=== PATIENT | female | born 1950 | race African-American/Black ===

== ENCOUNTER 2018-11-15 20:51 | Inpatient (IN) | payer OTHER, BC ==
[~2018-11-15] VITALS: Ht 144.8 cm; Wt 55.3 kg
[2018-11-15 20:55] VITALS: BP_SYST 153
--- NOTE | 2018-11-15 20:55 | NUR ---
Patient to ER bed 4 for evaluation. Side rails up.
--- NOTE | 2018-11-15 21:00 | NUR ---
Patient to ER via EMS for evaluation of generalized weakness with nausea x 1 day. Patient is awake, alert and oriented in no acute distress, vital signs stable, respirations even and unlabored, skin warm and dry to touch. EKG done in field shows sinus rhythm without ectopy, patient denies CP/SOB. Patient was medicated with Zofran 4 mg IVP x 2, blood glucose in field was 179. Awaiting evaluation by ER MD, will continue to observe and assess.
--- NOTE | 2018-11-15 21:30 | NUR ---
Family at bedside. Patient resting quietly in no acute distress.
--- NOTE | 2018-11-15 21:32 | NUR ---
Dr. Palomo at bedside.
[2018-11-15] MEDS ORDERED: NACL 0.9% 1,000 ML IV ONE (21:58)
[2018-11-15 22:35] LABS: ALBUMIN 3.2 g/dL (3.4-4.8); CALCIUM 8.4 mg/dL (8.4-11.0); CREATININE 0.75 mg/dL (0.55-1.30); POTASSIUM 3.1 mmol/L (3.5-5.1); TOTAL BILIRUBIN 0.4 mg/dL (0.0-1.0)
[2018-11-15 22:43] LABS: HEMATOCRIT 33.3 % (36-48); HEMOGLOBIN 11.5 g/dL (12.0-16.0); MEAN CORPUSCULAR HEMOGLOBIN 35 pg (27-31); MEAN CORPUSCULAR HGB CONC 35 % (32-36); MEAN CORPUSCULAR VOLUME 100 fL (79.0-98.0); PLATELET COUNT (AUTO) 315 K/uL (130-430); RED BLOOD CELL COUNT(AUTO) 3.32 MIL/uL (4.2-6.2); RED CELL DISTRIBUTION WIDTH 13.5 % (9.0-15.0); WHITE BLOOD COUNT (AUTO) 7.6 K/uL (4.8-10.8)
[2018-11-15 22:44] LABS: NEUTROPHILS % (AUTO) 85.5 % (40.0-70.0)
[2018-11-15] MEDS ORDERED: ASPIRIN 81 MG TAB.CHEW PO ONE (22:45)
[2018-11-15 22:46] LABS: MONOCYTES % (AUTO) 7.2 % (1.7-9.3)
[2018-11-15 22:47] LABS: BASOPHILS % (AUTO) 0.3 % (0.0-2.0); LYMPHOCYTES # (AUTO) 0.5 K/uL (1.0-5.5); MONOCYTES # (AUTO) 0.5 K/uL (0.0-1.0); NEUTROPHILS # (AUTO) 6.5 K/uL (1.8-7.7)
[2018-11-15] MEDS ORDERED: POTASSIUM CHLORIDE 20 MEQ TAB.PRT.SR PO ONE (23:00)
[2018-11-15 23:09] LABS: BILIRUBIN,URINE NEGATIVE (NEGATIVE); BLOOD, URINE NEGATIVE (NEGATIVE); CLARITY/URINE CLEAR (CLEAR); COLOR,URINE YELLOW (YELLOW); GLUCOSE,URINE NEGATIVE (NEGATIVE); KETONES,URINE 1+ (NEGATIVE); LEUKOCYTE ESTERASE ,URINE NEGATIVE (NEGATIVE); NITRITE, URINE NEGATIVE (NEGATIVE); PROTEIN URINE NEGATIVE (NEGATIVE); UROBILINOGEN,URINE 0.2 (0.2-1.0)
--- NOTE | 2018-11-15 23:10 | NUR ---
Pt resting in bed. VSS. Family at bedside. Will continue to monitor.
[2018-11-15] MEDS ORDERED: ESTR0.623 PO (23:19)
[2018-11-15] MEDS ORDERED: OMEP20CA10 PO (23:19)
[2018-11-15] MEDS ORDERED: CAT.1 PO (23:19)
[2018-11-16] VITALS (8 sets, daily range): BP systolic 103–126
[2018-11-16] MEDS ORDERED: TEMAZEPAM 15 MG CAPSULE PO PRN (00:15)
[2018-11-16] MEDS ORDERED: *LOVENOX 1MG/KG Q12H/PHARMACY XX ONE (00:15)
[2018-11-16] MEDS ORDERED: ACETAMINOPHEN 325 MG TABLET PO PRN (00:15)
[2018-11-16] MEDS ORDERED: NS 250 ML IV ONE (00:30)
--- NOTE | 2018-11-16 00:40 | NUR ---
Pt states, " I feel like my head is going to explode." VSS. ER MD Palomo notified, orders to given 250ml NS bolus. Will carry out orders.
--- NOTE | 2018-11-16 00:59 | NUR ---
ADMISSION: The patient, CARLEY CONNOR, 68 y/o, F admitted by MELVINA VIRGEN MD, was given written information regarding hospital policies, unit procedures and contact persons. Valuables were checked. .
--- NOTE | 2018-11-16 01:00 | NUR ---
EKG done prior to transfer to floor. Results given to ER MD.
--- NOTE | 2018-11-16 01:05 | NUR ---
Pt states she is feeling better after IVF given. VSS. gave OKAY to transfer to floor.
--- NOTE | 2018-11-16 01:30 | NUR ---
Pt transferred to room 135 with second RN. Report given bedside. Belongings sent with patient. Pt stable at time of transfer.
--- NOTE | 2018-11-16 01:52 | NUR ---
Consultation Paged Reason for Consultation: NSTEMI Was consult called: Y Person who was notified: Anita Consulting Physician: Dr. Cervantes Quality Manager Ordering Physician: Dr. Bernabe
--- NOTE | 2018-11-16 03:08 | NUR ---
RESTING Pt is resting in bed with both eyes closed. With visible chest rise and fall with unlabored breathing noted. No complains of pain at this time. No signs of acute distress or SOB noted. Safety precautions in place with 3 side rails up, bed alarm on, locked, and at lowest level. Call light with pt. Will continue to monitor.
--- NOTE | 2018-11-16 05:00 | NUR ---
RT AT BEDSIDE TAKING EKG.
[2018-11-16 05:49] LABS: HEMATOCRIT 31.8 % (36-48); HEMOGLOBIN 10.5 g/dL (12.0-16.0); MEAN CORPUSCULAR HEMOGLOBIN 33 pg (27-31); MEAN CORPUSCULAR HGB CONC 33 % (32-36); MEAN CORPUSCULAR VOLUME 101 fL (79.0-98.0); PLATELET COUNT (AUTO) 296 K/uL (130-430); RED BLOOD CELL COUNT(AUTO) 3.16 MIL/uL (4.2-6.2); RED CELL DISTRIBUTION WIDTH 13.4 % (9.0-15.0)
[2018-11-16 05:59] LABS: CALCIUM 7.9 mg/dL (8.4-11.0); CREATININE 0.63 mg/dL (0.55-1.30); POTASSIUM 3.7 mmol/L (3.5-5.1)
[2018-11-16 06:08] LABS: BASOPHILS % (AUTO) 0.8 % (0.0-2.0); EOSINOPHILS % (AUTO) 0.1 % (0.0-4.0); LYMPHOCYTES # (AUTO) 1.2 K/uL (1.0-5.5); LYMPHOCYTES % (AUTO) 19.6 % (20.5-51.5); MONOCYTES # (AUTO) 0.6 K/uL (0.0-1.0); MONOCYTES % (AUTO) 10.3 % (1.7-9.3); NEUTROPHILS # (AUTO) 4.2 K/uL (1.8-7.7); NEUTROPHILS % (AUTO) 69.2 % (40.0-70.0)
[2018-11-16 06:09] LABS: WHITE BLOOD COUNT (AUTO) 6.1 K/uL (4.8-10.8)
--- NOTE | 2018-11-16 06:10 | NUR ---
CLOSING NOTES Pt is resting in bed with both eyes closed. With visible chest rise and fall with unlabored breathing noted. No complains of pain or discomfort. No signs of acute distress or SOB noted. All needs attended throughout the shift. Safety precautions maintained and call light with pt. Will endorse to day shift nurse.
[2018-11-16 06:16] LABS: ALBUMIN 2.8 g/dL (3.4-4.8); FREE T4 (FREE THYROXINE) 0.7 ng/dl (0.8-1.5); THYROID STIMULATING HORMONE 8.07 uIu/mL (0.36-3.74); TOTAL BILIRUBIN 0.5 mg/dL (0.0-1.0)
--- NOTE | 2018-11-16 06:30 | NUR ---
ELEVATED TROP Received call from lab Tiny regarding pt's elevated Trop of 1.642 at 0625. Pt has no complains of chest pain. Vital signs are within normal range and recorded (see v/s). Dr. Bernabe already ordered cardio consult to Dr. Cervantes and was paged by area secretary, EKG was taken, and repeat trop at 1300 today. Charge nurse Gisel made aware. Will endorse to day shift nurse. Addendum: 11/16/18 at 0705 by Savita Castro RN Received call from lab at 0622 not 0625.
--- NOTE | 2018-11-16 07:45 | NUR ---
OPENING NOTE: RECEIVED REPORT FROM NIGHT NURSE. PATIENT IS RESTING COMFORTABLY IN BED. NO S/S OF DISTRESS OR SOB. PATIENT IS AWAKE AND ALERT, ABLE TO EXPRESS NEEDS, AND ASK FOR ASSISTANCE. PATIENT ON ROOM AIR. IV IS PATENT AND SALINE LOCKED. CALL LIGHT IN REACH, BED IN LOWEST POSITION, AND WILL CONTINUE TO MONITOR.
[2018-11-16] MEDS: ASPIRIN 81 MG TABLET(ECOTRIN) PO SCH (09:55)
[2018-11-16] MEDS: ESTROGENS,CONJUGATED 0.625 MG TABLET PO SCH (09:55)
[2018-11-16] MEDS: OMEPRAZOLE Non-Formulary 20 MG CAPSULE.DR PO SCH (09:55)
[2018-11-16] MEDS: ENOXAPARIN SODIUM 60 MG/0.6 ML SYRINGE SUBCUT SCH ×2 (09:56→20:23)
--- NOTE | 2018-11-16 10:00 | NUR ---
RN ROUNDS PATIENT IS RESTING COMFORTABLY IN BED. NO S/S OF DISTRESS OR SOB. PATIENT IS ALERT AND ORIENTED. NO COMPLAINTS OF CHEST PAIN. NO NEEDS EXPRESSED AT THIS TIME. CALL LIGHT IN REACH, BED IN LOWEST POSITION, AND WILL CONTINUE TO MONITOR.
--- NOTE | 2018-11-16 12:00 | NUR ---
RN ROUNDS PATIENT IS RESTING COMFORTABLY IN BED. NO S/S OF DISTRESS OR SOB. PATIENT IS ALERT AND ORIENTED. DAUGHTER IS AT BEDSIDE. NO CHEST PAIN. CALL LIGHT IN REACH, BED IN LOWEST POSITION, AND WILL CONTINUE TO MONITOR.
[2018-11-16] MEDS ORDERED: METOPROLOL SUCCINATE 25 MG TAB.SR.24H (TOPROL XL) PO ONE (13:00)
[2018-11-16] MEDS ORDERED: ONDANSETRON HCL 4 MG/2 ML VIAL IVP ONE (13:30)
--- NOTE | 2018-11-16 14:21 | NUR ---
Case mgt: Faxing face sheet and MD order for cardiac cath (scheduled at [facility] at 1630 on 11/17/18) to [facility] fax#[phone]--MARTY MARINELLI Addendum: 11/16/18 at 1543 by Virginia Boles RN Case mgt: I rec'd call back from Rea in admitting at [facility]-She verified she rec'd the faxed face sheet and MD order for transfer for cardiac cath for 11/17/18 and said to call early to mid-morning for bed assignment tomorrow and no further information required from [facility] at this time. Chana geriatric case manager, will make pt and nurse aware--MARTY MARINELLI
--- NOTE | 2018-11-16 14:28 | NUR ---
RN ROUNDS PATIENT IS RESTING COMFORTABLY IN BED. NO S/S OF DISTRESS OR SOB. PATIENT IS ALERT AND ORIENTED. NO COMPLAINTS OF CHEST PAIN. CALL LIGHT IN REACH, BED IN LOWEST POSITION, AND WILL CONTINUE TO MONITOR.
--- NOTE | 2018-11-16 16:00 | NUR ---
RN ROUNDS PATIENT IS RESTING COMFORTABLY IN BED. NO S/S OF DISTRESS OR SOB. PATIENT IS ALERT AND ORIENTED. DAUGHTER AT BEDSIDE. NO NEEDS AT THIS TIME. CALL LIGHT IN REACH, BED IN LOWEST POSITION, AND WILL CONTINUE TO MONITOR.
--- NOTE | 2018-11-16 18:53 | NUR ---
CLOSING NOTE: PATIENT IS RESTING COMFORTABLY IN BED. NO S/S OF DISTRESS OR SOB. PATIENT IS AWAKE AND ALERT. ALL NEEDS MET DURING SHIFT. TRANSPORT FOR TOMORROW IS SET UP 1:30PM. CALL LIGHT IN REACH, BED IN LOWEST POSITION, AND WILL GIVE REPORT TO NIGHT NURSE.
[2018-11-16] MEDS ORDERED: ONDANSETRON HCL 4 MG/2 ML VIAL IVP PRN (19:00)
--- NOTE | 2018-11-16 19:28 | NUR ---
Opening notes Received report. Patient resting comfortably in bed, watching TV. No signs of distress noted. Breathing is even and unlabored. Denies any pain or discomfort at this time. Provided patient with new socks per patient request. No other needs. Call light with the patient. Bed in the lowest position and bed rails up x2. Daughter at bedside. Addendum: 11/16/18 at 1932 by Dyana River RN Informed patient about NPO status after midnight. Patient verbalized understanding.
--- NOTE | 2018-11-16 20:23 | NUR ---
Medications Scheduled medications given at this time. Educated the action and side effects of medications. Patient verbalized understanding and tolerated well. No signs of allergic reaction noted. Call light with patient. Safety precautions in place.
--- NOTE | 2018-11-16 22:30 | NUR ---
Resting Patient resting comfortably in bed. No signs of distress noted. Breathing is even and unlabored. No needs at this time. Call light with the patient. Safety precautions in place.
--- NOTE | 2018-11-17 | NUR ---
NPO Reminded patient on NPO status. Patient verbalized understanding. No other needs at this time. Call light with patient. Safety precautions in place.
--- NOTE | 2018-11-17 02:00 | NUR ---
Sleeping Patient sleeping. No sign of distress noted. Breathing is even and unlabored. Call light with patient. Safety precautions in place.
--- NOTE | 2018-11-17 04:00 | NUR ---
Sleeping Patient asleep in bed. No signs of distress noted. Breathing is even and unlabored. Call light with the patient. Safety precautions in place.
[2018-11-17 06:17] LABS: THYROID STIMULATING HORMONE 7.46 uIu/mL (0.36-3.74)
--- NOTE | 2018-11-17 06:26 | NUR ---
Closing notes Patient resting comfortably in bed. No signs of distress noted. Breathing is even and unlabored. IV is patent and intact. NPO status maintained. All needs met throughout the shift. Call light with the patient. Safety precautions in place. Will endorse care to day shift RN. Addendum: 11/17/18 at 0714 by Dyana River RN Lab called reporting Troponin 0.564. MD not called because troponin is trending down.
[2018-11-17 08:00] VITALS: BP_SYST 119
--- NOTE | 2018-11-17 08:00 | NUR ---
Note Pt resting in bed, denies any chest pain/discomfort or SOB/resp distress at this time. Pt has tele unit attached and intact at this time. Pt's IV in left forearm intact and patent. Pt is NPO since midnight for cardiac procedure at [facility] at 4.30pm. Pt to be transferred to [facility] around 1pm. No needs noted. Call light within reach.
[2018-11-17] MEDS: OMEPRAZOLE Non-Formulary 20 MG CAPSULE.DR PO SCH (08:41)
[2018-11-17] MEDS: ASPIRIN 81 MG TABLET(ECOTRIN) PO SCH (08:41)
[2018-11-17] MEDS: ESTROGENS,CONJUGATED 0.625 MG TABLET PO SCH (08:42)
[2018-11-17] MEDS: ENOXAPARIN SODIUM 60 MG/0.6 ML SYRINGE SUBCUT SCH ×2 (08:46→21:15)
[2018-11-17] MEDS ORDERED: ATORVASTATIN 20 MG TABLET PO SCH (09:00)
[2018-11-17] MEDS ORDERED: METOPROLOL SUCCINATE 25 MG TAB.SR.24H (TOPROL XL) PO SCH (09:00)
--- NOTE | 2018-11-17 09:47 | NUR ---
Discharge Planning: [facility] called [facility] for bed assignment for patient, per Tere in admissions ER there was over flowing with patients. Tere will contact [facility] when a bed is available. 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 [facility] called [facility] to put ambulance on Will Call. MDP to follow up. Addendum: 11/17/18 at 0952 by Elo Mcallister DP Tere at [facility] admission [phone]
--- NOTE | 2018-11-17 10:58 | NUR ---
Nutrition Update Lew Scale 18 noted Pt admitted for NSTEMI Diet: NPO BMI: 26 RD to Follow per nutrition care standards
[2018-11-17] MEDS ORDERED: LEVOTHYROXINE SODIUM 0.1 MG TABLET PO ONE (11:45)
--- NOTE | 2018-11-17 12:00 | NUR ---
Note Dr Gee (cardio MD) came to see pt around 1130am, informed pt that they would be unable to do pt's cardiac procedure at [facility] today due to unforeseen emergency today, cardiac procedure will be done tomorrow at [facility]. Diet to be ordered for pt to eat lunch at this time. Questions/concerns were answered at this time. Dr Bernabe came to see pt at bedside at 1140am, questions/concerns were answered at this time. Orders written and carried out. Call light within reach. No needs noted at this time.
[2018-11-17 13:48] VITALS: BP_SYST 147
--- NOTE | 2018-11-17 16:00 | NUR ---
Note Pt sitting up in bed watching television, denies any chest pain/discomfort all shift. Tele unit attached and intact all shift. Denies any other needs at this time. Call light within reach.
[2018-11-17 16:41] VITALS: BP_SYST 117
--- NOTE | 2018-11-17 18:02 | NUR ---
CHECKED WITH [facility] THE SCHED TIME FOR HEART CATH TOMORROW 11/18/18. SPOKE WITH VERO, NURSING JANITOR HEAD AND WAS ADVISED THAT PT SHOULD BE THERE BETWEEN 0700 - 0800. HEART CATH IS AT [address] [facility], I WAS ALSO INSTRUCTED TO GET A BED JACQUARD PLATE MAKER BY CALLING NURSING JANITOR HEAD.
--- NOTE | 2018-11-17 18:25 | NUR ---
Note Pt sitting up in bed waiting for family. Pt refused her dinner tray, states family will bring her something for dinner. Pt was checked on q1' and PRN all shift for needs and care. Pt denies any severe chest pain/discomfort or SOB/resp distress. Tele unit intact and attached all shift. IV in left forearm intact and patent at this time. No needs noted at this time. Call light within reach.
--- NOTE | 2018-11-17 19:28 | NUR ---
Opening notes Received report. Patient resting comfortably in bed, watching TV. No signs of distress noted. Breathing is even and unlabored. Denies any pain or discomfort at this time. Informed patient about NPO status after midnight. Patient verbalized understanding. No needs at this time. Call light with the patient. Bed in the lowest position and bed rails up x3.
[2018-11-17 20:00] VITALS: BP_SYST 133
--- NOTE | 2018-11-17 20:01 | NUR ---
AMBUL[facility] CALLED [facility] -NO ALS TILL AFTER 9 TRAVIS [place]- NO ALS TILL AFTER 8 SADIA RIDE NON AVAIL. FIRST RESCUE. NO ALS AMBULANZ-NON AVAIL CARE AMBULANCE NON AVAIL SET UP [facility] FOR 0700 SHIP [facility]PENTER THAT WAS THE EARLIEST . SPOKE WITH VANGIE AT [facility] , NOTIFIED RN AND CHARGE NURSE
--- NOTE | 2018-11-17 21:15 | NUR ---
Medications Scheduled medications given at this time. Educated the action and side effects of medications. Patient verbalized understanding and tolerated well. No signs of allergic reaction noted.
--- NOTE | 2018-11-17 22:55 | NUR ---
Resting Patient in bed, watching TV. No signs of distress noted. Breathing is even and unlabored. No needs at this time. Call light with the patient. Safety precautions in place.
[2018-11-18 01:18] VITALS: BP_SYST 121
--- NOTE | 2018-11-18 01:23 | NUR ---
Sleeping Patient asleep in bed. No signs of distress noted. Breathing is even and unlabored. Call light with the patient. Safety precautions in place.
[2018-11-18 03:39] VITALS: BP_SYST 124
--- NOTE | 2018-11-18 03:56 | NUR ---
Sleeping Patient sleeping at this time. No signs of distress noted. Breathing is even and unlabored. Call light with patient. Safety precautions in place.
--- NOTE | 2018-11-18 04:23 | NUR ---
ISABELLA SPOKE WITH DEYANIRA DAVE AT [facility] SHE SAID PT WILL GO STRAIGHT TO PAYABLE REPRESENTATIVE THEN WILL GO TO TELLO UNIT AFTER. PAYABLE REPRESENTATIVE OPENS AT 0630 PHONE NUMBER FOR REPORT IS [phone]
--- NOTE | 2018-11-18 06:52 | NUR ---
Discharge note. Report given to Marcelina MARINELLI at [facility]. Report and discharge packet given to [facility] EMT. Patient alert and oriented x4. No signs of distress noted. VSS. Patient to be discharged with LFA 20 g IV; patent and intact. Exit care provided. Patient and patient belongings discharged via gurney.
[2018-11-18] MEDS ORDERED: LEVOTHYROXINE SODIUM 0.1 MG TABLET PO SCH ×2 (07:00)
[2018-11-18 07:18] LABS: CALCIUM 8.5 mg/dL (8.4-11.0); CREATININE 0.64 mg/dL (0.55-1.30); POTASSIUM 3.3 mmol/L (3.5-5.1)
[2018-11-18 07:23] LABS: HEMATOCRIT 33.4 % (36-48); HEMOGLOBIN 11.4 g/dL (12.0-16.0); MEAN CORPUSCULAR HEMOGLOBIN 35 pg (27-31); MEAN CORPUSCULAR HGB CONC 34 % (32-36); MEAN CORPUSCULAR VOLUME 101 fL (79.0-98.0); PLATELET COUNT (AUTO) 339 K/uL (130-430); RED BLOOD CELL COUNT(AUTO) 3.31 MIL/uL (4.2-6.2); RED CELL DISTRIBUTION WIDTH 13.1 % (9.0-15.0); WHITE BLOOD COUNT (AUTO) 5.9 K/uL (4.8-10.8)
[2018-11-18 09:30] LABS: BAND % (MANUAL) 1 % (0-6); BASOPHILS % (MANUAL) 0 % (0-2); EOSINOPHILS % (MANUAL) 2 % (0-7); LYMPHOCYTES % (MANUAL) 24 % (20-46); MONOCYTES % (MANUAL) 6 % (0-11)
== END 2018-11-18 06:55 | disposition short-term general hospital (02) | DRG 281 ==
LOC: SED 20:51 → STU 11-16 00:01
PROVIDERS: ADMIT Internal Medicine; ATTEND Internal Medicine
DX: I21.4 Non-ST elevation (NSTEMI) myocardial infarction (principal); E44.0 Moderate protein-calorie malnutrition; I10 Essential (primary) hypertension; F41.9 Anxiety disorder, unspecified; E03.9 Hypothyroidism, unspecified; D64.9 Anemia, unspecified; E87.6 Hypokalemia; I16.0 Hypertensive urgency; Z79.899 Other long term (current) drug therapy; Z90.710 Acquired absence of both cervix and uterus; Z90.49 Acquired absence of other specified parts of digestive tract
CPT/HCPCS: 36415; 71045; 80048; 80053; 80061; 81003; 83690-TC; 83735-TC; 84439; 84443-TC; 84484; 85007; 85025; 85027; 93005; 93306; 96360; 99285; G0378; J1650; J2405; J7030